=== PATIENT | female | born 1970 | race African-American/Black ===

== ENCOUNTER → 2017-02-14 | Outpatient (CLI) | payer OTHER ==
--- NOTE | ~2017-02-14 | CR170 ---
[facility]. [facility] A Service of [facility] & [facility] RADIOLOGY TEXT RESULTS PATIENT: JIGAR COSTELLO LOCATION: [facility] : 66 UNIT #: [id number] AGE: [address]: Juno Rodríguez MD SEX: F ORDER DR: [id number] [place] [id number] O MR#: [id number] Acc #: [id number] NAME: JIGAR COSTELLO : 1970 SEX: F STUDY DATE/TIME: 02/14/2017 13:51 [facility] ROOM: STUDY DESCRIPTION: CR Knee 2 Views Rt Attending Physician: Juno Rodríguez M.D. Referring Physician: Juno Rodríguez M.D. Ordering Physician: Juno Rodríguez M.D. Primary Care Physician: Bronson Ramachandran M.D. MEDICAL IMAGING REPORT This report is preliminary unless electronic signature is present. EXAM Right knee 2 views, 02/14/2017 HISTORY Right knee pain for 2 months with no known injury. FINDINGS 2 views of the right knee demonstrate no fracture. The joint space is normally maintained. Small osteophytes extend off the medial and lateral femoral condyles and the posterior aspect of the patella. The bones are normally mineralized. There is no joint effusion. IMPRESSION Minimal degenerative change involving the right knee. No acute abnormality. Dictated by... Jasper Rice M.D. THIS IS AN ELECTRONICALLY VERIFIED REPORT Jasper Rice M.D. at 02/15/2017 7:47 AM DENZEL/holly TD: 02/14/2017 19:38 JOB #: [id number] MEDICAL IMAGING REPORT Page 1 of 1
--- NOTE | ~2017-02-14 | CR169 ---
[facility]. [facility] A Service of [facility] & [facility] RADIOLOGY TEXT RESULTS PATIENT: JIGAR COSTELLO LOCATION: [facility] : 66 UNIT #: [id number] AGE: [address]: Juno Rodríguez MD SEX: F ORDER DR: [id number] [address] [address] [id number] O MR#: [id number] Acc #: [id number] NAME: JIGAR COSTELLO : 1970 SEX: F STUDY DATE/TIME: 02/14/2017 13:51 UNIT: [facility] ROOM: STUDY DESCRIPTION: CR Knee 2 Views Lt Attending Physician: Juno Rodríguez M.D. Referring Physician: Juno Rodríguez M.D. Ordering Physician: Juno Rodríguez M.D. Primary Care Physician: Bronson Ramachandran M.D. MEDICAL IMAGING REPORT This report is preliminary unless electronic signature is present. EXAM Left knee, 2 views, 02/14/2017. HISTORY Left knee pain for 2 months. No known injury. FINDINGS 2 views of the left knee demonstrate no fracture. There is degenerative change with some osteophytic spurring extending off the femoral condyles. The bones are normally mineralized. There is no soft tissue abnormality. IMPRESSION Minimal degenerative change involving the left knee. No acute abnormality. Dictated by... Jasper Rice M.D. THIS IS AN ELECTRONICALLY VERIFIED REPORT Jasper Rice M.D. at 02/15/2017 7:47 AM DENZEL/suzanne TD: 02/14/2017 19:17 JOB #: [id number] MEDICAL IMAGING REPORT Page 1 of 1
== END | disposition home or self-care (01) ==
LOC: SRAD 13:45
DX: M25.561 Pain in right knee (principal); M25.562 Pain in left knee
CPT/HCPCS: 73560